=== PATIENT | male | born 1975 | race Caucasian/White ===

== ENCOUNTER 2016-08-15 13:02 | Observation (INO) | payer OTHER ==
[~2016-08-15] VITALS: Ht 175.3 cm; Wt 93.4 kg
[2016-08-15 13:50] VITALS: BP 126/76; PULSE 91; TEMP 98.2
[2016-08-15] MEDS ORDERED: DILAUDID 2MG TAB2 MG PO (14:03)
[2016-08-15] MEDS ORDERED: CARAFATE 1GM1 G PO (14:04)
[2016-08-15] MEDS ORDERED: TYLENOL 500MG500 MG PO (14:04)
[2016-08-15] MEDS ORDERED: MOBIC15 MG PO (14:05)
[2016-08-15] MEDS ORDERED: PREDNISONE10 MG PO (14:05)
[2016-08-15] MEDS ORDERED: AMBIEN CR 12.12.5 MG PO (14:06)
[2016-08-15] MEDS ORDERED: FLEXERIL 1010 MG/TAB PO (14:09)
[2016-08-15] MEDS ORDERED: [UNRECOGNIZED DRUG - CODE] PO (14:11)
[2016-08-15] MEDS ORDERED: AZO-STANDARD95 MG PO (14:12)
[2016-08-15] MEDS ORDERED: ZOMIG5 MG PO (14:12)
[2016-08-15] MEDS ORDERED: RESTORIL 1515 MG/CAP PO (14:12)
[2016-08-15] MEDS ORDERED: FLOMAX 0.40.4 MG/CAP PO (14:13)
[2016-08-15] MEDS ORDERED: QUALAQUIN324 MG PO (14:17)
[2016-08-15] MEDS ORDERED: BENADRYL25 M2 PO (14:17)
[2016-08-15 22:11] VITALS: BP 116/69; PULSE 80; TEMP 97.8
[2016-08-16 01:28] VITALS: BP 110/69; PULSE 78; TEMP 98.2
[2016-08-16 04:53] VITALS: BP 116/69; PULSE 95; TEMP 97.5
== END 2016-08-16 08:47 | disposition home health service (06) ==
LOC: SDCO 13:02 → SURG 14:23 → SDCO 17:15 → SURG 08-16 08:47
DX: N20.1 Calculus of ureter (principal); Z87.442 Personal history of urinary calculi
CPT/HCPCS: C1769; C2617; G0378; J0690; J1100; J2270; J2405; J2550; J2704; J3010; J7120; Q9967

== ENCOUNTER 2016-10-31 17:23 | Emergency (ER) | payer OTHER ==
[~2016-10-31] VITALS: Ht 175.3 cm; Wt 90.9 kg
[~2016-10-31 17:23] MED LIST: AMBIEN CR 12.12.5 MG PO; AZO-STANDARD95 MG PO; BENADRYL25 M2 PO; CARAFATE 1GM1 G PO; DILAUDID 2MG TAB2 MG PO; FLEXERIL 1010 MG/TAB PO; FLOMAX 0.40.4 MG/CAP PO; MOBIC15 MG PO; PREDNISONE10 MG PO; QUALAQUIN324 MG PO; RESTORIL 1515 MG/CAP PO; TYLENOL 500MG500 MG PO; ZOMIG5 MG PO; [UNRECOGNIZED DRUG - CODE] PO
[2016-10-31 17:27] VITALS: BP 135/88; TEMP 98.7
[2016-10-31 18:31] VITALS: PULSE 76
== END 2016-10-31 18:31 | disposition home or self-care (01) ==
LOC: COL.ER 17:23
DX: M25.512 Pain in left shoulder (principal)

== ENCOUNTER → 2016-11-30 | Outpatient (CLI) | payer OTHER | LOC: COL.RAD 13:59 | DX: M75.122 Complete rotator cuff tear or rupture of left shoulder, not specified as traumatic (principal); M25.712 Osteophyte, left shoulder; M19.012 Primary osteoarthritis, left shoulder; Z98.890 Other specified postprocedural states; X58.XXXA Exposure to other specified factors, initial encounter; Y99.0 Civilian activity done for income or pay | CPT/HCPCS: Q9967 ==

== ENCOUNTER 2016-12-27 15:45 | Outpatient (RCR) | payer OTHER | END 2016-12-28 08:38 | disposition still patient (30) | LOC: MKS.ESL.PT 15:45 | DX: M54.12 Radiculopathy, cervical region (principal) ==

== ENCOUNTER → 2017-04-27 | Outpatient (CLI) | payer OTHER | LOC: COL.RAD 13:15 | DX: M75.81 Other shoulder lesions, right shoulder (principal) ==

== ENCOUNTER 2017-07-03 16:15 | Outpatient (RCR) | payer OTHER | END 2017-07-10 08:37 | disposition home or self-care (01) | LOC: MKS.ESL.PT 16:15 | DX: M25.511 Pain in right shoulder (principal); Z98.890 Other specified postprocedural states ==